=== PATIENT | male | born 1950 | race Two or more races ===

== ENCOUNTER 2024-08-11 14:37 | Inpatient (IN) | payer OTHER ==
[~2024-08-11] VITALS: Ht 180.3 cm; Wt 92.5 kg
[2024-08-11] MEDS ORDERED: TOPROL XL50 M1 PO (15:47)
[2024-08-11] MEDS ORDERED: CHLORTHALIDONE25 MG PO (15:47)
[2024-08-11] MEDS ORDERED: COZAAR100 MG PO (15:47)
[2024-08-11] MEDS ORDERED: ROSUVASTATIN CA10 MG PO (15:48)
[2024-08-11] MEDS ORDERED: CEFTRIAXONE SODIUM 2,000 MG VIAL IV ONE (16:30)
[2024-08-11] MEDS ORDERED: 0.9 % SODIUM CHLORIDE 500 ML IV ONE (16:30)
[2024-08-11] MEDS ORDERED: CEFTRIAXONE SODIUM 2,000 MG VIAL ONE (16:31)
[2024-08-11 16:38] LABS: BASO % 0.2 % (0.1-1.2); HEMATOCRIT 31.9 % (40.1-51.0); HEMOGLOBIN 11.4 g/dL (13.7-17.5); LYMPH # 1.38 (1.18-3.74); LYMPH % 8.5 % (19.3-53.1); MEAN CORPUSCULAR HEMOGLOBIN 33.7 pg (25.6-32.2); MONO # 0.82 (0.24-0.82); NEUT # 13.87 (1.56-6.13); NEUT % 85.4 % (34.0-71.1); PLATELET COUNT 266 K/uL (163-369); RED BLOOD COUNT 3.38 M/uL (4.63-6.08)
[2024-08-11 16:42] LABS: ERYTHROCYTE SEDIMENTATION RATE 107 mm/hr (0-20)
[2024-08-11 17:00] LABS: ALBUMIN 3.4 gm/dL (3.4-5.0); BILIRUBIN TOTAL 0.37 mg/dL (0.3-1.2); CALCIUM 9.9 mg/dL (8.5-10.1); CREATININE SERUM 3.17 mg/dL (0.70-1.30); GFR 19.45; GLOBULINA 4.9 G/DL (2.4-3.5); POTASSIUM 4.15 mEq/L (3.5-5.1); TOTAL PROTEIN 8.3 gm/dL (6.4-8.2)
[2024-08-11 17:20] LABS: COVID-19 AG NEGATIVE (NEGATIVE)
[2024-08-11 17:21] LABS: INFLUENZA A AG NEGATIVE (NEGATIVE); INFLUENZA B AG NEGATIVE (NEGATIVE)
[2024-08-11 17:46] LABS: URINE APPEARANCE Cloudy; URINE BILIRRUBIN Small (NEGATIVE); URINE BLOOD Negative; URINE COLOR Dark Yellow; URINE GLUCOSE Negative (NEGATIVE); URINE KETONE 15 (NEGATIVE); URINE LEUKOCYTE Negative; URINE NITRATE Negative; URINE PROTEIN 30 (NEGATIVE)
[2024-08-11 17:50] LABS: URINE EPITHELIAL CELLS 12.9 uL (0.0-38.8); URINE RBC 17.9 uL (0.0-20.8); URINE WBC 6.6 uL (0.0-23.2)
[2024-08-11 18:13] LABS: URINE CAST > 21.83 uL (0.0-1.40); URINE CRYSTALS FEW /HPF; URINE MUCUS SCANT
[2024-08-11] MEDS ORDERED: PIPERACILLIN/TAZOBACTAM SODIUM 2.25 GM in DEXTROSE 5 % IN WATER 50 ML IV SCH (20:39)
[2024-08-11] MEDS ORDERED: 0.9 % SODIUM CHLORIDE 1,000 ML IV SCH (20:45)
[2024-08-11] MEDS ORDERED: 0.9 % SODIUM CHLORIDE 1,000 ML IV ONE (20:45)
[2024-08-11] MEDS ORDERED: ACETAMINOPHEN 500 MG GEL..CAP PO PRN (20:45)
[2024-08-12 01:23] LABS: INR 1.08; PARTIAL THROMBOPLASTIN TIME 27.6 SECONDS (22.0-34.0); PROTHROMBIN TIME 11.7 SECONDS (9.0-11.5)
[2024-08-12 01:32] LABS: MAGNESIUM 2.2 mg/dL (1.8-2.4); PHOSPHOROUS 3.2 mg/dL (2.5-4.9)
[2024-08-12 01:41] LABS: C-REACTIVE PROTEIN 13.7 MG/DL (0.00-0.29)
[2024-08-12 02:36] VITALS: BP 118/68; O2SAT 96
[2024-08-12] MEDS ORDERED: FAMOTIDINE/PF 20 MG in 0.9 % SODIUM CHLORIDE 8 ML IV PUSH SCH (09:00)
[2024-08-12] MEDS ORDERED: ENOXAPARIN SODIUM 30 MG/0.3 ML SYRINGE SUBCUTANEO SCH (09:00)
[2024-08-12] MEDS ORDERED: ROSUVASTATIN CALCIUM 10 MG TABLET PO SCH (09:00)
[2024-08-12] MEDS ORDERED: METOPROLOL SUCCINATE 50 MG TAB.SR.24H PO SCH (09:00)
[2024-08-12 11:01] VITALS: BP 101/66; O2SAT 95
[2024-08-12 16:45] VITALS: BP 111/69; O2SAT 97
[2024-08-13 01:17] VITALS: BP 136/78; O2SAT 94
[2024-08-13 05:59] LABS: CREATININE SERUM 1.5 mg/dL (0.70-1.30); GFR 46.13; POTASSIUM 4.51 mEq/L (3.5-5.1)
[2024-08-13 08:55] VITALS: BP 11/71; O2SAT 96
[2024-08-13] MEDS ORDERED: PHENOL 177 ML BOTTLE MM SCH (12:00)
[2024-08-13 17:13] VITALS: BP 126/73; O2SAT 96
[2024-08-14] VITALS: BP 130/79; O2SAT 96
[2024-08-14 07:31] LABS: BASO % 0.3 % (0.1-1.2); EOS # 0.29 (0.04-0.54); EOS % 4.9 % (0.7-7.0); HEMATOCRIT 31.9 % (40.1-51.0); HEMOGLOBIN 10.9 g/dL (13.7-17.5); LYMPH # 1.83 (1.18-3.74); LYMPH % 30.8 % (19.3-53.1); MEAN CORPUSCULAR HEMOGLOBIN 32.9 pg (25.6-32.2); MONO # 0.95 (0.24-0.82); NEUT # 2.84 (1.56-6.13); NEUT % 47.7 % (34.0-71.1); PLATELET COUNT 313 K/uL (163-369); RED BLOOD COUNT 3.31 M/uL (4.63-6.08); RED CELL DISTRIBUTION WIDTH 14.3 % (11.6-14.4)
[2024-08-14 07:59] LABS: ALBUMIN 3.1 gm/dL (3.4-5.0); BILIRUBIN TOTAL 0.36 mg/dL (0.3-1.2); CALCIUM 9.4 mg/dL (8.5-10.1); CREATININE SERUM 1.32 mg/dL (0.70-1.30); GFR 53.47; GLOBULINA 3.6 G/DL (2.4-3.5); PHOSPHOROUS 4.7 mg/dL (2.5-4.9); POTASSIUM 4.7 mEq/L (3.5-5.1); TOTAL PROTEIN 6.7 gm/dL (6.4-8.2)
[2024-08-14 08:57] VITALS: BP 112/76
[2024-08-14] MEDS ORDERED: FAMOtidine 20 MG TABLET PO SCH (09:00)
== END 2024-08-14 09:32 | disposition home or self-care (01) | DRG 603 ==
LOC: ER 14:57 → MEDI 21:22
PROVIDERS: General Practice; Internal Medicine; Student in an Organized Health Care Education/Training Program; ADMIT Internal Medicine; ATTEND Internal Medicine
PROC: BN25ZZZ Computerized Tomography (CT Scan) of Facial Bones (ICD-10-PCS; principal; 2024-08-11)
PROC: BT43ZZZ Ultrasonography of Bilateral Kidneys (ICD-10-PCS; 2024-08-11)
DX: L03.211 Cellulitis of face (principal); N17.9 Acute kidney failure, unspecified; R65.10 Systemic inflammatory response syndrome (SIRS) of non-infectious origin without acute organ dysfunction; L53.8 Other specified erythematous conditions; I12.9 Hypertensive chronic kidney disease with stage 1 through stage 4 chronic kidney disease, or unspecified chronic kidney disease; N18.9 Chronic kidney disease, unspecified